=== PATIENT | male | born 1975 | race Caucasian/White ===

== ENCOUNTER 2022-12-22 09:40 | Outpatient (AMB) | payer MEDICARE, MEDICAID, SELFPAY ==
[2022-12-22 09:57] VITALS: BP 134/87; PULSE 82; RESP 14; O2SAT 95; BMI 22.1
--- NOTE | 2022-12-22 09:57 | MHC.OFFVIS ---
Intake Vital Signs 12/22/22 09:57 Height 6 ft Weight 163 lb BMI 22.1 BP 134/87 Blood Pressure Location Lt brachial Position Sitting Respiration 14 Pulse 82 Pulse Source Pulse Oximeter Pulse Oximetry (%) 95 Oxygen Delivery Method Room Air Intake Visit Reasons: pain s/p SIJ fusion Allergies gabapentin Adverse Reaction (Severe, Verified 12/22/22 09:59) Hallucinations trazodone Adverse Reaction (Severe, Verified 12/22/22 09:59) Nightmare Medication List - Last Reconciled 12/22/22 by Mey Denton LPN amlodipine-benazepril 5-10 mg 1 cap PO DAILY aspirin (Adult Aspirin Regimen) 81 mg PO DAILY diazepam 10 mg PO BID PRN insulin degludec (Tresiba FlexTouch U-100 insulin) 5 units subcut DAILY insulin lispro (Humalog KwikPen (U-100) Insulin) 1 sliding scale dose subcut USEASDIRECTD lisinopril 5 mg PO DAILY omeprazole 20 mg PO DAILY oxycodone 10 mg PO Q4H PRN simvastatin 10 mg PO BEDTIME HPI pain s/p SIJ fusion HPI Details 47-year-old female presenting today for a new patient evaluation of pain status post SIJ fusion. The patient was referred by Dr. Snell. The patient underwent two SIJ fusions last year. The patient reports increased pain postoperatively that is mostly localized to the bilateral sacroiliac joints. The pain extends into his buttocks but does not radiate down to his lower extremities. It is rated as 9/10 in intensity. The patient states that his pain was constant stabbing ranging at 7/10 in intensity before surgery. Few months after his surgery, he has throbbing pain and he had difficulty ambulating without his crutches, and his pain has kept worsening since. Movements and weather changes make it worse. He is unable to sleep normally or do his daily activities. The pain is relatively okay when he is resting/sleeping but any kind of awake activity makes it worse. He takes oxycodone 10 mg 4 times a day prescribed by Dr. Snell as well as diazepam 10 mg twice a day. Prior history is notable for lumbar spine surgery by Dr. Webster. He describes aching stabbing sensation in his lumbar spine prior to that surgery. Following the surgery that aching stabbing sensation is lumbar spine somewhat decline. At present he continues to have some pain in his lumbar spine, but denies significant debilitation from that pain. He had a MRI prior to his last surgery about a year ago at [facility], likely for the sacroiliac joint. He denies any weakness, numbness, or paresthesia in his lower extremities. He has a longstanding history of diabetes mellitus and was diagnosed at the age of 19. There is no evidence of diabetic neuropathy per his psychologist chief. [facility] Medical History (Updated 12/22/22 @ 10:42 by Bradford Barber) Anxiety Disorder of sacrum GERD (gastroesophageal reflux disease) HTN (hypertension) Hyperlipidemia Lumbar spondylosis Type 1 diabetes mellitus Review of Systems Const All systems reviewed & are unremarkable except as noted in HPI and below Physical Exam Vital Signs: Last Vital Signs Pulse 82 12/22/22 09:57 Resp 14 12/22/22 09:57 BP 134/87 12/22/22 09:57 Pulse Ox 95 12/22/22 09:57 Oxygen Delivery Method Room Air 12/22/22 09:57 BMI result Body Mass Index 22.1 General: Appears afebrile. Alert and oriented. Mood and affect appropriate. Follows and participates in conversation appropriately. Respiratory effort is unlabored. Able to transition from sit to stand unassisted. Ambulates with bilaterally normal heel strike and toe off. There are well-healed incisions in the lumbar spine from prior lumbar spine fusion surgery. There is a well-healed scar in the right iliac crest for bone harvest for lumbar spine bone graft. No significant tenderness in the lumbar spine despite significant axial muscle spasm. Most of his tenderness overlies bilateral sacroiliac joints. No evidence of weakness in the lower extremities. Results Reviewed Results Reviewed: No imaging is available for review. Assessment & Plan Assessment & Plan (1) Lumbar post-laminectomy syndrome: Code(s): M96.1 - Postlaminectomy syndrome, not elsewhere classified (2) Status post fusion of sacroiliac joint: Code(s): Z98.1 - Arthrodesis status Plan Discussed targeted medial cluneal PNS for sacrococcygeal pain vs spinal cord stimulation for back and leg pain. It appears the vast majority of his pain is secondary to a failed SI joint fusion, but difficult to rule out post-laminectomy syndrome as a possible cause. Will schedule him for diagnostic bilateral medial cluneal nerve blocks first. Discussed the risks and benefits of the procedure with the patient in detail. All questions were answered. The patient is on board with the plan. Depending on response to the cluneal nerve blocks, we can proceed with either medial cluneal PNS versus trial of spinal cord stimulation with a Nevro device. Ordered a CT scan of the lumbar spine and SI joints for further evaluation of the postsurgical anatomy to rule out hardware failure as well as for potential surgical planning in the future. Will place a referral for psychology clearance. The patient will receive a call from [facility] for the psychological assessment. Justification for interventional therapy: ? Patient with average pain > 6/10 ? Patient has exhausted conservative therapy including nerve blocks, SIJ fusion, lumbar fusion, oral narcotic medication Scribed for Dr. Rico by Bradford Barber, certified medical coder, on 12/22/2022. I, Dr. Rico, have personally reviewed and agree with the information entered by the scribe. Orders: Orders CT lumbar spine wo IV con Today M96.1 - Postlaminectomy syndrome, not elsewhere classified, Z98.1 - Arthrodesis status Coding Level of Care Code New Pt Level 4 (51081) Diagnoses Lumbar post-laminectomy syndrome M96.1 Status post fusion of sacroiliac joint Z98.1
== END 2022-12-22 10:37 | disposition home or self-care (01) ==
PROVIDERS: Visit Provider Internal Medicine
DX: M96.1 Postlaminectomy syndrome, not elsewhere classified (principal); Z98.1 Arthrodesis status
CPT/HCPCS: 99204

== ENCOUNTER → 2022-12-22 09:40 | Outpatient (BNVA) | payer MEDICARE, MEDICAID, SELFPAY | PROVIDERS: Visit Provider Internal Medicine | DX: M96.1 Postlaminectomy syndrome, not elsewhere classified (principal); M47.816 Spondylosis without myelopathy or radiculopathy, lumbar region; E10.9 Type 1 diabetes mellitus without complications; Z98.1 Arthrodesis status; Z79.82 Long term (current) use of aspirin; Z79.4 Long term (current) use of insulin; Z79.891 Long term (current) use of opiate analgesic | CPT/HCPCS: 99202 ==

== ENCOUNTER 2023-01-26 10:59 | Outpatient (REF) | payer MEDICARE, MEDICAID, SELFPAY | END 2023-01-26 11:00 | disposition home or self-care (01) | LOC: HO.CT 10:59 | PROVIDERS: PCP Internal Medicine; Visit Provider Internal Medicine | DX: Z13.89 Encounter for screening for other disorder (principal) ==

== ENCOUNTER 2023-01-28 06:14 | Outpatient (REF) | payer MEDICARE, MEDICAID, SELFPAY ==
--- NOTE | ~2023-01-28 | FL_ITS ---
EXAMINATION: XR FLUOROSCOPY WITH IMAGES CLINICAL INFORMATION: Other specified mononeuropathies. COMPARISON: None available. TECHNIQUE: Fluoroscopy Supervised By: Dr. Juan Miguel Rico. Fluoroscopy Time: 0.1 minute. Cumulative Dose: 2.02 mGy. DAP: 0.285 Gycm2. Images: 2. FINDINGS: Images demonstrate needle placement and contrast injection adjacent to the bilateral lower lumbar sacral spine. Disc surgery to the lower lumbar spine. Hardware in the left pelvis. FL/FL guidance in treatment room IMPRESSION: Fluoroscopy guidance for pain management procedure
== END 2023-01-28 06:15 | disposition home or self-care (01) ==
LOC: CF 06:14
PROVIDERS: Visit Provider Internal Medicine
DX: G58.8 Other specified mononeuropathies (principal); Z98.1 Arthrodesis status
CPT/HCPCS: 64450

== ENCOUNTER 2023-01-28 08:19 | Outpatient (AMB) | payer MEDICARE, MEDICAID, SELFPAY ==
[2023-01-28 08:27] VITALS: BP 130/78; PULSE 90; RESP 14; O2SAT 97
--- NOTE | 2023-01-28 08:27 | A.OFFVIS_ITS ---
Intake Vital Signs 01/28/23 08:27 01/28/23 09:22 BP 130/78 144/60 H Blood Pressure Location Rt brachial Rt brachial Position Sitting Sitting Respiration 14 14 Pulse 90 61 Pulse Source Pulse Oximeter Pulse Oximeter Pulse Oximetry (%) 97 98 Oxygen Delivery Method Room Air Room Air Intake Visit Reasons: robert Dx cluneal NB Allergies gabapentin Adverse Reaction (Severe, Verified 01/28/23 08:27) Hallucinations trazodone Adverse Reaction (Severe, Verified 01/28/23 08:27) Nightmare HPI robert Dx cluneal NB HPI Details Patient presents for scheduled procedure. Denies any recent cough, cold, infection, fever or other significant changes in medical history since last office visit. [facility] Medical History (Updated 01/23/23 @ 08:45 by Shantell Rai APRN, [place]) Hyperlipidemia GERD (gastroesophageal reflux disease) Type 1 diabetes mellitus Anxiety HTN (hypertension) Lumbar spondylosis Disorder of sacrum Physical Exam Vital Signs: Last Vital Signs Pulse 90 01/28/23 08:27 Resp 14 01/28/23 08:27 BP 130/78 01/28/23 08:27 Pulse Ox 97 01/28/23 08:27 Oxygen Delivery Method Room Air 01/28/23 08:27 Office Procedures Nerve Block Details: Bilateral Medial Cluneal Nerves, fluoroscopic guided nerve block After obtaining written consent, pre-procedure blood pressure and heart rate were stable and recorded in the nursing record. The patient was placed prone on the fluoroscopy table. The area overlying the peripheral nerves was widely prepped with chloraprep, allowed to dry and sterilely draped. Using fluoroscopy, the appropriate landmarks were identified. The skin overlying the target was anesthetized with 0.5% lidocaine. A 22 gauge 3.5 inch spinal needle was advanced under fluoroscopic guidance to the appropriate landmarks at three sites along the medial iliac border. Verification was done using lateral and AP views. Aspiration was negative for heme. 0.5 cc of ropivacaine 0.5% was injected around each targeted area. The needles were removed, skin cleansed and a sterile bandage was applied. The patient tolerated the procedure well and no complications were encountered. Following the procedure the patient's vital signs were stable. The patient was discharged home in good condition with post- procedural instructions. Time Out: Immediately prior to the procedure, the following was verbally confirmed that there is a signed consent form and that the correct patient, planned procedure, site and side are consistent with documentation and that necessary equipment and/or blood products are available prior to the start of the case. 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 Patient tolerated procedure well and was discharged home in stable condition with discharge instructions. All questions were answered. We will follow-up via telephone or in clinic to assess response to therapy. A follow-up appointment was made during today's visit. Orders: Orders FL guidance in treatment room Today G58.8 - Other specified mononeuropathies Coding Level of Care Code Procedure Only Diagnoses Cluneal neuropathy G58.8 Status post fusion of sacroiliac joint Z98.1
[2023-01-28 09:22] VITALS: BP 144/60; PULSE 61; RESP 14; O2SAT 98
== END 2023-01-28 09:21 | disposition home or self-care (01) ==
PROVIDERS: PCP Internal Medicine; Visit Provider Internal Medicine
DX: G58.8 Other specified mononeuropathies (principal); Z98.1 Arthrodesis status
CPT/HCPCS: 64450; 77002

== ENCOUNTER 2023-01-30 12:12 | Outpatient (AMB) | payer MEDICARE, MEDICAID, SELFPAY ==
--- NOTE | 2023-01-30 12:13 | MHC.OFFVIS ---
Intake Intake Visit Reasons: s/p robert Dx cluneal NB Allergies gabapentin Adverse Reaction (Severe, Verified 01/28/23 08:27) Hallucinations trazodone Adverse Reaction (Severe, Verified 01/28/23 08:27) Nightmare HPI s/p robert Dx cluneal NB HPI Details 47-year-old male who presents today to the office for a status post bilateral diagnostic cluneal NB. The patient has not completed his psychological evaluation with [employer] [facility]. Past procedure: 01/28/23: Bilateral Medial Cluneal Nerves, fluoroscopic guided nerve block: 60% relief for 6 hours. [facility] Medical History (Updated 01/23/23 @ 08:45 by Shantell Rai, LONG WALL MINING MACHINE HELPER, GAMMA OPERATOR) Hyperlipidemia GERD (gastroesophageal reflux disease) Type 1 diabetes mellitus Anxiety HTN (hypertension) Lumbar spondylosis Disorder of sacrum Review of Systems Const All systems reviewed & are unremarkable except as noted in HPI and below Physical Exam General: Appears afebrile. Alert and oriented. Mood and affect appropriate. Follows and participates in conversation appropriately. Respiratory effort is unlabored. Able to transition from sit to stand unassisted. Ambulates with bilaterally normal heel strike and toe off. Results Reviewed Results Reviewed: No imaging is available for review. 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 We will schedule trial once we receive psych clearance. Patient expressed understanding. Scribed for Dr. Rico by Bradford Barber, medical records auditor, on 01/30/2023. I, Dr. Rico, have personally reviewed and agree with the information entered by the scribe. Telehealth Telehealth Location of provider rendering services: practice address Location of patient: address on file Patient Identification confirmed using: Name, : Yes Telehealth method: voice only Patient verbally consented to treatment: Yes Patient verbally consented to billing insurance company: Yes Patient informed of any privacy concerns related to visit: Yes Minutes spent on Phone/Video with Pt.: 10 Coding Level of Care Code Tele Est Pt Level 3 (48285) Diagnoses Cluneal neuropathy G58.8 Status post fusion of sacroiliac joint Z98.1
== END 2023-01-30 12:13 | disposition home or self-care (01) ==
LOC: HO.PMC 12:12
PROVIDERS: PCP Internal Medicine; Visit Provider Internal Medicine
DX: G58.8 Other specified mononeuropathies (principal); Z98.1 Arthrodesis status
CPT/HCPCS: G2012

== ENCOUNTER → 2023-01-30 12:12 | Outpatient (BNVA) | payer MEDICARE, MEDICAID, SELFPAY | PROVIDERS: PCP Internal Medicine; Visit Provider Internal Medicine ==

== ENCOUNTER → 2023-02-19 09:43 | Outpatient (BNVA) | payer MEDICARE, MEDICAID, SELFPAY | PROVIDERS: PCP Internal Medicine; Visit Provider Internal Medicine ==

== ENCOUNTER → 2023-02-26 09:27 | Outpatient (BNVA) | payer MEDICARE, MEDICAID, SELFPAY | PROVIDERS: PCP Internal Medicine; Visit Provider Internal Medicine ==

== ENCOUNTER 2023-10-21 09:16 | Day surgery (SDC) | payer MEDICARE, MEDICAID, SELFPAY ==
--- NOTE | 2023-10-19 12:08 | P.CONAN_ITS ---
Documented by User: Annia Massey NP 10/19/23 12:08 HPI - Anesthesia Eval Consult details Narrative: 48yo M for Bilateral Medial Cluneal Nerve Stimulator Trial [facility] Active Problems Active Problems: All Active Problems Cluneal neuropathy (Acute) Status post fusion of sacroiliac joint (Acute) Lumbar post-laminectomy syndrome (Acute) Past Medical History Medical History Hyperlipidemia GERD (gastroesophageal reflux disease) Type 1 diabetes mellitus Anxiety HTN (hypertension) Lumbar spondylosis Disorder of sacrum Surgical History Surgical History (Updated 10/21/23 @ 09:55 by Jessica Radford RN) History of corneal transplant Hx of hand surgery Hx of tonsillectomy History of back surgery Social History Social History Patient Tobacco Use Status: Former Tobacco user Use of substances other than those prescribed or required for medical reasons: Yes Substance Use Type Other:: smoked and edibles Substance Use Frequency: Occasionally Are you DNR?: No Advance Directives: No Advance Directives Information Provided: Yes Meds Allergies Allergy/AdvReac Type Severity Reaction Status Date / Time gabapentin AdvReac Severe Hallucinati Verified 10/21/23 09:56 ons trazodone AdvReac Severe Nightmare Verified 10/21/23 09:56 Home Medications ?Medication ?Instructions ?Recorded ?Confirmed ?Last Taken ?Type amlodipine 5 mg-benazepril 10 mg 1 cap PO DAILY 12/22/22 10/21/23 10/21/23 05:00 History capsule aspirin 81 mg tablet,delayed 81 mg PO DAILY 12/22/22 10/21/23 10/13/23 History release (Adult Aspirin Regimen) diazepam 10 mg tablet 10 mg PO BID PRN Anxiety 12/22/22 10/21/23 Unknown History insulin degludec 100 unit/mL (3 5 unit subcut DAILY 12/22/22 10/21/23 10/21/23 06:30 History mL) subcutaneous pen (Tresiba FlexTouch U-100 insulin) insulin lispro 100 unit/mL 1 sliding scale dose subcut 12/22/22 10/21/23 Unknown History subcutaneous pen (Humalog KwikPen USEASDIRECTD (U-100) Insulin) lisinopril 5 mg tablet 5 mg PO DAILY 12/22/22 10/21/23 10/21/23 05:00 History omeprazole 20 mg capsule,delayed 20 mg PO DAILY 12/22/22 10/21/23 10/21/23 05:00 History release oxycodone 10 mg tablet 10 mg PO Q4H PRN Pain 12/22/22 10/21/23 Unknown History simvastatin 10 mg tablet 10 mg PO BEDTIME 12/22/22 10/21/23 Unknown History Assessment and Plan Assessment Anesthesia Assessment: Chart Reviewed Documented by User: Jayme Hinojosa MD 10/21/23 13:21 [facility] Past Medical History Medical History Hyperlipidemia GERD (gastroesophageal reflux disease) Type 1 diabetes mellitus Anxiety HTN (hypertension) Lumbar spondylosis Disorder of sacrum Family History Family history of problems with anesthesia: No Surgical History Surgical History (Updated 10/21/23 @ 09:55 by Jessica Radford RN) History of corneal transplant Hx of hand surgery Hx of tonsillectomy History of back surgery History of Problems with Anesthesia: No Social History Social History Patient Tobacco Use Status: Former Tobacco user Use of substances other than those prescribed or required for medical reasons: Yes Substance Use Type Other:: smoked and edibles Substance Use Frequency: Occasionally Are you DNR?: No Advance Directives: No Advance Directives Information Provided: Yes Meds Allergies Allergy/AdvReac Type Severity Reaction Status Date / Time gabapentin AdvReac Severe Hallucinati Verified 10/21/23 09:56 ons trazodone AdvReac Severe Nightmare Verified 10/21/23 09:56 Home Medications ?Medication ?Instructions ?Recorded ?Confirmed ?Last Taken ?Type amlodipine 5 mg-benazepril 10 mg 1 cap PO DAILY 12/22/22 10/21/23 10/21/23 05:00 History capsule aspirin 81 mg tablet,delayed 81 mg PO DAILY 12/22/22 10/21/23 10/13/23 History release (Adult Aspirin Regimen) diazepam 10 mg tablet 10 mg PO BID PRN Anxiety 12/22/22 10/21/23 Unknown History insulin degludec 100 unit/mL (3 5 unit subcut DAILY 12/22/22 10/21/23 10/21/23 06:30 History mL) subcutaneous pen (Tresiba FlexTouch U-100 insulin) insulin lispro 100 unit/mL 1 sliding scale dose subcut 12/22/22 10/21/23 Unknown History subcutaneous pen (Humalog KwikPen USEASDIRECTD (U-100) Insulin) lisinopril 5 mg tablet 5 mg PO DAILY 12/22/22 10/21/23 10/21/23 05:00 History omeprazole 20 mg capsule,delayed 20 mg PO DAILY 12/22/22 10/21/23 10/21/23 05:00 History release oxycodone 10 mg tablet 10 mg PO Q4H PRN Pain 12/22/22 10/21/23 Unknown History simvastatin 10 mg tablet 10 mg PO BEDTIME 12/22/22 10/21/23 Unknown History Exam Airway Mallampati Class: II TM Dist: >3cm Neck ROM: Full Denture: Upper Partial: Lower Assessment and Plan Assessment Anesthesia Assessment: Anesthesia Plan Discussed Final Anesthetic Review Family History of Problems with Anesthesia: No History of Problems with Anesthesia: No NPO: Yes ASA Class: III Final Preanesthetic Review: No Changes in Pt Med Stat, Meds/Allgs Chart Reviewed, Consent Obtained/Reviewed and Anes Risks/Benef Reviewed Patient Risk: Intermediate Procedure Risk: Low Anesthetic Plan Anesthetic Plan: MAC: Disposition: Standard PACU
--- NOTE | ~2023-10-21 | FL_ITS ---
EXAMINATION: XR FLUOROSCOPY WITH IMAGES CLINICAL INFORMATION: Medial cranial nerve stimulator trial. COMPARISON: None available. TECHNIQUE: Fluoroscopy Supervised By: Dr. Juan Miguel Rico. Fluoroscopy Time: 34 seconds. Cumulative Dose: 8.1734 mGy. DAP: 1.9890 Gycm2. Images: 2. FINDINGS: Intraoperative fluoroscopy and spot films were performed during a procedure in the OR. Fixation devices are seen overlying the sacrum. 2 stimulator leads are seen on each side of the sacrum. Please correlate with Dr. Juan Miguel Rico's report for complete details. FL/FL guidance in OR IMPRESSION: Intraoperative fluoroscopy and spot films were obtained. Please see Dr. Juan Miguel Rico's report for complete details.
[2023-10-21 09:46] VITALS: BMI 22.7
[2023-10-21 10:18] VITALS: BP 164/66; PULSE 45; RESP 15; TEMP 36.8; O2SAT 97
[2023-10-21 10:20] LABS: Glucose, Whole Blood 302 mg/dL (60-115)
[2023-10-21] MEDS: Lactated Ringers 1,000 ML 100 ML IVCONT (10:32)
[2023-10-21 11:28] LABS: MRSA Nasal PCR NEGATIVE (Negative); SA Nasal PCR POSITIVE (Negative)
[2023-10-21] MEDS: Insulin Lispro 100 UNIT/ML 3 ML VIAL SUBCUT (12:00)
[2023-10-21 13:09] LABS: Glucose, Whole Blood 240 mg/dL (60-115)
--- NOTE | 2023-10-21 13:47 | MHC.SHP ---
Pre-Procedural Eval Section A - 24 Hr Update-Section A only Date of Service: 10/21/23 The patient is an INPATIENT: No Changes since office visit: Yes Patient answered all questions The patient has been examined within 24 hours of the surgical procedure. The History & Physical has been completed within 30 days and I have reviewed it.: No Section B - Complete if H&P > 30 days Chief Complaint: Other specified mononeuropathies Relevant Family History (Specify if Yes): No Relevant Social History: Other (specify) Present Medications: see Short Stay Collaborative assessment Medical History: No relevant PMH History of Previous Operations: No relevant previous surgery Allergies: Allergies Allergy/AdvReac Type Severity Reaction Status Date / Time gabapentin AdvReac Severe Hallucinati Verified 10/21/23 09:56 ons trazodone AdvReac Severe Nightmare Verified 10/21/23 09:56 Review of Systems Sugical H&P ROS: Negative: Constitution, Cardiovascular and Respiratory Exam Surgical H&P Exam: Normal: HEENT, Normal: Heart and Normal: Lungs Plan Diagnosis/Plan: Unchanged I have reviewed the history and physical and performed a pertinent physical examination on my patient. No changes have occurred unless specified. Time Spent With Patient Time: Total time managing care of this patient today ____ minutes.
[2023-10-21 15:05] VITALS: BP 118/66; PULSE 54; RESP 16; TEMP 36.1; O2SAT 98
--- NOTE | 2023-10-21 15:11 | PM.OP ---
Brief Operative Note Date of Service: 10/21/23 Pre-op diagnosis: Medial cluneal neuropathy, sacroiliac joint pain Post-op diagnosis: same Procedure: Bilateral medial cluneal nerve stimulator trial lead placement Implants: Curonix PNS trial leads Surgeon: Juan Miguel Rico MD Anesthesia: MAC Was an Residential Sales Representative used for this Procedure?: No Estimated blood loss (mL): 2 Pathology: none sent Condition: stable Disposition: PACU
--- NOTE | 2023-10-21 15:12 | P.OP_ITS ---
Operative Note Operative Note Date of Service: 10/21/23 Narrative: Percutaneous trial of cluneal nerve stimulation of bilateral After obtaining written consent, pre-procedure blood pressure and heart rate were stable and recorded in the nursing record. Standard monitors were applied. A peripheral IV was started. Antibiotics, cefazolin 2 grams, were given prior to the start of the procedure. The patient was positioned in prone position and sedated by the music education director. The lumbar area was widely prepped with chloraprep and draped in sterile fashion. The skin at the insertion site was anesthetized with 0.5% lidocaine. A small stab was made with a scalpel to allow for easy insertion of the introducer on each side. The introducers were advanced subcutaneously along the length of the lateral margin of the posterior sacral rami in the distribution of the medial cluneal nerve on each side. The electrode arrays were passed through the introducers using a tenting approach at a shallow angle. Fluoroscopy, AP and lateral, was used to confirm appropriate lead position. Stimulation was performed and good coverage was obtained. The lead was secured using benzoin, steri-strips and tegaderms. The patient tolerated the procedure well. No complications were encountered. Following the procedure the patient's vital signs were stable. The patient was discharged home in good condition with post- procedural instructions. Time Out: Immediately prior to the procedure, the following was verbally confirmed that there is a signed consent form and that the correct patient, planned procedure, site and side are consistent with documentation and that necessary equipment and/or blood products are available prior to the start of the case. Complications: none EBL: <5 cc
[2023-10-21 15:20] VITALS: BP 127/88; PULSE 57; RESP 16; O2SAT 98
[2023-10-21 15:35] VITALS: BP 131/73; PULSE 56; RESP 16; TEMP 36.1; O2SAT 98
[2023-10-21] MEDS: oxyCODONE HCl Immed Release 5 MG TABLET 10 MG PO (15:37)
[2023-10-21 15:50] VITALS: BP 132/78; PULSE 54; RESP 16; TEMP 36.1; O2SAT 98
== END 2023-10-21 15:57 | disposition home or self-care (01) ==
PROVIDERS: Registered Nurse Emergency; PCP Internal Medicine; Visit Provider Internal Medicine
PROC: (CPT 64555; principal; 2023-10-21 11:50)
DX: G58.8 Other specified mononeuropathies (principal); E10.9 Type 1 diabetes mellitus without complications; I10 Essential (primary) hypertension; Z98.1 Arthrodesis status
CPT/HCPCS: 64555 ×2; 82947; 87640; 87641; C1897; J0690; J2250; J2704; J3010

== ENCOUNTER → 2023-10-21 09:16 | Outpatient (BNV) | payer MEDICARE, MEDICAID, SELFPAY | PROVIDERS: PCP Internal Medicine; Visit Provider Internal Medicine | DX: G58.8 Other specified mononeuropathies (principal) | CPT/HCPCS: 63650; 64555 ==

== ENCOUNTER 2023-10-28 09:50 | Outpatient (AMB) | payer MEDICARE, MEDICAID, SELFPAY ==
[2023-10-28 10:04] VITALS: BP 169/95; PULSE 59; RESP 14; O2SAT 98; BMI 20.7
--- NOTE | 2023-10-28 10:04 | MHC.OFFVIS ---
Vital Signs 10/28/23 10:04 Height 6 ft Weight 153 lb BMI 20.7 BP 169/95 H Blood Pressure Location Lt brachial Position Sitting Respiration 14 Pulse 59 Pulse Source Pulse Oximeter Pulse Oximetry (%) 98 Oxygen Delivery Method Room Air Intake Visit Reasons: S/p B/l Trial of Medial Cluneal Nerve PNS 10/21/23 Allergies gabapentin Adverse Reaction (Severe, Verified 10/28/23 10:08) Hallucinations trazodone Adverse Reaction (Severe, Verified 10/28/23 10:08) Nightmare Medication List - Last Reconciled 10/28/23 by Mey Denton LPN amlodipine-benazepril 5-10 mg 1 cap PO DAILY aspirin (Adult Aspirin Regimen) 81 mg PO DAILY diazepam 10 mg PO BID PRN insulin degludec (Tresiba FlexTouch U-100 insulin) 5 units subcut DAILY insulin lispro (Humalog KwikPen (U-100) Insulin) 1 sliding scale dose subcut USEASDIRECTD lisinopril 5 mg PO DAILY omeprazole 20 mg PO DAILY oxycodone 10 mg PO Q4H PRN simvastatin 10 mg PO BEDTIME HPI HPI S/p B/l Trial of Medial Cluneal Nerve PNS 10/21/23: Details: 48-year-old male who presents to the office for status post bilateral trial of medial cluneal nerve PNS 10/21/23 He reports about 60% pain relief following the procedure. Past procedure: 10/21/23: Bilateral diagnostic cluneal nerve PNS: >60% relie 01/28/23: Bilateral Medial Cluneal Nerves, fluoroscopic guided nerve block: 60% relief for 6 hours. [facility] Medical History Hyperlipidemia GERD (gastroesophageal reflux disease) Type 1 diabetes mellitus Anxiety HTN (hypertension) Lumbar spondylosis Disorder of sacrum Surgical History (Updated 10/21/23 @ 09:55 by Jessica Radford RN) History of corneal transplant Hx of hand surgery Hx of tonsillectomy History of back surgery Social History Patient Tobacco Use Status: Former Tobacco user Review of Systems Const All systems reviewed & are unremarkable except as noted in HPI and below Physical Exam Vital Signs: Last Vital Signs Pulse 59 10/28/23 10:04 Resp 14 10/28/23 10:04 BP 169/95 H 10/28/23 10:04 Pulse Ox 98 10/28/23 10:04 Oxygen Delivery Method Room Air 10/28/23 10:04 BMI result Body Mass Index 20.7 General: Appears afebrile. Alert and oriented. Mood and affect appropriate. Follows and participates in conversation appropriately. Respiratory effort is unlabored. Able to transition from sit to stand unassisted. Draininage noted at lead insertion site on the right. 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 For his superficial skin infection on the right side, the right lead insertion site I will prescribe Cephalexin 750 mg 3 times a day for 7 days. I changed the dressing in the office today and dressed it with bacitracin. I also provided him with supplies for bacitracin and Tegaderm to do it at home, which he can do with the help of his neighbor, who is a nurse. He will contact me if it fails to respond to the antibiotic. I counseled him regarding watching for swelling, redness and or drainage at the site. Patient expressed understanding. We will schedule for an implant of bilateral medial cluneal nerve stimulator. Discussed the risks and benefits of the procedure with the patient in detail. All questions were answered. The patient is on board with the plan. Justification for interventional therapy: ? Patient with average pain > 6/10 ? Patient has exhausted conservative therapy ? Patient unable to tolerate physical therapy due to pain Scribed for Dr. Rico by Candace Hernandez, medical authorization specialist, on 10/28/2023. I, Dr. Rico, have personally reviewed and agree with the information entered by the scribe. Medications: New cephalexin 750 mg PO TID 21 caps 0RF Coding Level of Care Code Est Pt Level 3 (32757) Diagnoses Cluneal neuropathy G58.8 Status post fusion of sacroiliac joint Z98.1
== END 2023-10-28 10:21 | disposition home or self-care (01) ==
PROVIDERS: PCP Internal Medicine; Visit Provider Internal Medicine
DX: G58.8 Other specified mononeuropathies (principal); Z98.1 Arthrodesis status
CPT/HCPCS: 99024

== ENCOUNTER → 2023-10-28 09:50 | Outpatient (BNVA) | payer MEDICARE, MEDICAID, SELFPAY | PROVIDERS: PCP Internal Medicine; Visit Provider Internal Medicine | DX: G58.8 Other specified mononeuropathies (principal); Z98.1 Arthrodesis status | CPT/HCPCS: 99212 ==

== ENCOUNTER 2023-11-09 11:35 | Outpatient (AMB) | payer MEDICARE, MEDICAID, SELFPAY ==
[2023-11-09 11:36] VITALS: BP 138/72; PULSE 90; BMI 22.8
--- NOTE | 2023-11-09 11:36 | A.OFFVIS_ITS ---
Vital Signs 11/09/23 11:36 Height 6 ft Weight 168 lb BMI 22.8 BP 138/72 Blood Pressure Location Rt brachial Position Sitting Pulse 90 Pulse Source Pulse Oximeter Comment Vitals are stated by patient who took them at home. Intake Visit Reasons: QUESTIONS ABOUT DRESSING CHANGES It Risk Advisor Required: No Allergies gabapentin Adverse Reaction (Severe, Verified 10/28/23 10:08) Hallucinations trazodone Adverse Reaction (Severe, Verified 10/28/23 10:08) Nightmare HPI HPI QUESTIONS ABOUT DRESSING CHANGES: Details: 48-year-old male who presents today to the office for a question about changing dressing. He reports back pain. He rates his back pain at 9-10/10 in intensity. He describes his pain as a stabbing sensation in the back. He is physically not active and does not walk or climb stairs. He has been changing his dressing two to three times a week. He states that his wound is still slightly draining, though it is not as painful and the drainage is minimal. He completed his antibiotics course two days ago.? Past procedure: 10/21/23: Bilateral diagnostic cluneal nerve PNS 01/28/23: Bilateral Medial Cluneal Nerves, fluoroscopic guided nerve block: 60% relief for 6 hours. [facility] Medical History Hyperlipidemia GERD (gastroesophageal reflux disease) Type 1 diabetes mellitus Anxiety HTN (hypertension) Lumbar spondylosis Disorder of sacrum Surgical History (Updated 10/21/23 @ 09:55 by Jessica Radford RN) History of corneal transplant Hx of hand surgery Hx of tonsillectomy History of back surgery Social History Patient Tobacco Use Status: Former Tobacco user Review of Systems Const All systems reviewed & are unremarkable except as noted in HPI and below Physical Exam Vital Signs: Last Vital Signs Pulse 90 11/09/23 11:36 BP 138/72 11/09/23 11:36 BMI result Body Mass Index 22.8 Telehealth Telehealth Telehealth Platform: Telephone Location of provider rendering services: practice address Location of patient: address on file Patient Identification confirmed using: Name, : Yes Telehealth method: voice only Patient verbally consented to treatment: Yes Patient verbally consented to billing insurance company: Yes Patient informed of any privacy concerns related to visit: Yes Minutes spent on Phone/Video with Pt.: 8 Results Reviewed Results Reviewed: No imaging is available for review. 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 We will follow up in one week to reassess for complete resolution and assess for further oral antibiotics. We will proceed to implant once the infection is completely settled. The patient will follow up on 11/16/2023 at 10:[address] Rico by Bradford Barber, director global medical affairs, on 11/09/2023. I, Dr. Rico, have personally reviewed and agree with the information entered by the scribe. Medications: New glsljwcc-zfklkhrthSp-zdghujspF 3.5-500-10,000 aj-kkyi-dxfk 1 appl topical BID 28 grams 0RF Coding Level of Care Code Tele Est Pt Level 3 (92265) Diagnoses Cluneal neuropathy G58.8 Status post fusion of sacroiliac joint Z98.1
== END 2023-11-09 11:43 | disposition home or self-care (01) ==
LOC: HO.PMC 11:35
PROVIDERS: PCP Internal Medicine; Visit Provider Internal Medicine
DX: G58.8 Other specified mononeuropathies (principal); Z98.1 Arthrodesis status
CPT/HCPCS: 99441

== ENCOUNTER → 2023-11-09 11:35 | Outpatient (BNVA) | payer MEDICARE, MEDICAID, SELFPAY | PROVIDERS: PCP Internal Medicine; Visit Provider Internal Medicine ==

== ENCOUNTER 2023-11-16 10:17 | Outpatient (AMB) | payer MEDICARE, MEDICAID, SELFPAY ==
--- NOTE | 2023-11-16 10:19 | A.OFFVIS_ITS ---
Vital Signs 11/16/23 10:20 Height 6 ft Weight 168 lb BMI 22.8 BP 140/62 H Blood Pressure Location Lt brachial Position Sitting Respiration 14 Pulse 59 Pulse Source Pulse Oximeter Pulse Oximetry (%) 97 Oxygen Delivery Method Room Air Intake Visit Reasons: 1 week follow up/ MRSA swab Allergies gabapentin Adverse Reaction (Severe, Verified 11/16/23 10:22) Hallucinations trazodone Adverse Reaction (Severe, Verified 11/16/23 10:22) Nightmare Medication List - Last Reconciled 11/16/23 by Mey Denton LPN amlodipine-benazepril 5-10 mg 1 cap PO DAILY aspirin (Adult Aspirin Regimen) 81 mg PO DAILY cephalexin 750 mg PO TID diazepam 10 mg PO BID PRN insulin degludec (Tresiba FlexTouch U-100 insulin) 5 units subcut DAILY insulin lispro (Humalog KwikPen (U-100) Insulin) 1 sliding scale dose subcut USEASDIRECTD lisinopril 5 mg PO DAILY qdgnquek-noxxjbhogOf-erphbjsaS 3.5-500-10,000 fu-ugkn-nknl 1 appl topical BID omeprazole 20 mg PO DAILY oxycodone 10 mg PO Q4H PRN simvastatin 10 mg PO BEDTIME HPI HPI 1 week follow up/ MRSA swab: Details: 48-year-old male who presents today to the office for a wound check. He reports mild pain at the wound site. He had a MRSA testing done which was negative. Past procedure: 10/21/23: Bilateral diagnostic cluneal nerve PNS: More than 60% relief for the duration of the trial 01/28/23: Bilateral Medial Cluneal Nerves, fluoroscopic guided nerve block: 60% relief for 6 hours. [facility] Medical History Hyperlipidemia GERD (gastroesophageal reflux disease) Type 1 diabetes mellitus Anxiety HTN (hypertension) Lumbar spondylosis Disorder of sacrum Surgical History (Updated 10/21/23 @ 09:55 by Jessica Radford RN) History of corneal transplant Hx of hand surgery Hx of tonsillectomy History of back surgery Social History Patient Tobacco Use Status: Former Tobacco user Review of Systems Const All systems reviewed & are unremarkable except as noted in HPI and below Physical Exam Vital Signs: Last Vital Signs Pulse 59 11/16/23 10:20 Resp 14 11/16/23 10:20 BP 140/62 H 11/16/23 10:20 Pulse Ox 97 11/16/23 10:20 Oxygen Delivery Method Room Air 11/16/23 10:20 BMI result Body Mass Index 22.8 General: Appears afebrile. Alert and oriented. Mood and affect appropriate. Follows and participates in conversation appropriately. Respiratory effort is unlabored. Able to transition from sit to stand unassisted. Ambulates with bilaterally normal heel strike and toe off. The needle entry site has closed off. There is no drainage. There is mild tenderness at the needle entry sites bilaterally likely from localized strain. No evidence of active infection. Results Reviewed Results Reviewed: No imaging is available for review. 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 He is cleared to proceed with scheduling the implant anytime after November to allow for adequate localized soft tissue healing prior to implant placement. Scribed for Dr. Rico by Bradford Barber, medical office secretary, on 11/16/2023. I, Dr. Rico, have personally reviewed and agree with the information entered by the scribe. Coding Level of Care Code Est Pt Level 3 (09971) Diagnoses Cluneal neuropathy G58.8 Status post fusion of sacroiliac joint Z98.1
[2023-11-16 10:20] VITALS: BP 140/62; PULSE 59; RESP 14; O2SAT 97; BMI 22.8
== END 2023-11-16 10:32 | disposition home or self-care (01) ==
LOC: HO.PMC 10:17
PROVIDERS: PCP Internal Medicine; Visit Provider Internal Medicine
DX: G58.8 Other specified mononeuropathies (principal); Z98.1 Arthrodesis status
CPT/HCPCS: 99213

== ENCOUNTER → 2023-11-16 10:17 | Outpatient (BNVA) | payer MEDICARE, MEDICAID, SELFPAY | PROVIDERS: PCP Internal Medicine; Visit Provider Internal Medicine | DX: G58.8 Other specified mononeuropathies (principal); Z98.1 Arthrodesis status | CPT/HCPCS: 99212 ==

== ENCOUNTER 2024-04-27 10:09 | Day surgery (SDC) | payer MEDICARE, MEDICAID, SELFPAY ==
--- NOTE | 2024-04-25 14:33 | HO.ANESPROP2 ---
HPI - Anesthesia Eval Consult details Narrative: 48yo M for Bilateral Medial Cluneal Peripheral Nerve Stimulator Implant s/p trial 10/2023 with MAC hx corneal transplant PMFSH Active Problems Active Problems: All Active Problems Cluneal neuropathy (Acute) Status post fusion of sacroiliac joint (Acute) Lumbar post-laminectomy syndrome (Acute) Past Medical History Medical History Hyperlipidemia GERD (gastroesophageal reflux disease) Type 1 diabetes mellitus Anxiety HTN (hypertension) Lumbar spondylosis Disorder of sacrum Family History Family history of problems with anesthesia: No Surgical History Surgical History (Updated 10/21/23 @ 09:55 by Jessica Radford RN) History of corneal transplant Hx of hand surgery Hx of tonsillectomy History of back surgery History of Problems with Anesthesia: No Social History Social History Patient Tobacco Use Status: Former Tobacco user Meds Allergies Allergy/AdvReac Type Severity Reaction Status Date / Time gabapentin AdvReac Severe Hallucinati Verified 11/16/23 10:22 ons trazodone AdvReac Severe Nightmare Verified 11/16/23 10:22 Home Medications ?Medication ?Instructions ?Recorded ?Confirmed ?Last Taken ?Type amlodipine 5 mg-benazepril 10 mg 1 cap PO DAILY 12/22/22 11/16/23 10/21/23 05:00 History capsule aspirin 81 mg tablet,delayed 81 mg PO DAILY 12/22/22 11/16/23 10/13/23 History release (Adult Aspirin Regimen) diazepam 10 mg tablet 10 mg PO BID PRN Anxiety 12/22/22 11/16/23 Unknown History insulin degludec 100 unit/mL (3 5 unit subcut DAILY 12/22/22 11/16/23 10/21/23 06:30 History mL) subcutaneous pen (Tresiba FlexTouch U-100 insulin) insulin lispro 100 unit/mL 1 sliding scale dose subcut 12/22/22 11/16/23 Unknown History subcutaneous pen (Humalog KwikPen USEASDIRECTD (U-100) Insulin) lisinopril 5 mg tablet 5 mg PO DAILY 12/22/22 11/16/23 10/21/23 05:00 History omeprazole 20 mg capsule,delayed 20 mg PO DAILY 12/22/22 11/16/23 10/21/23 05:00 History release oxycodone 10 mg tablet 10 mg PO Q4H PRN Pain 12/22/22 11/16/23 Unknown History simvastatin 10 mg tablet 10 mg PO BEDTIME 12/22/22 11/16/23 Unknown History Assessment and Plan Assessment Anesthesia Assessment: Chart Reviewed Final Anesthetic Review Family History of Problems with Anesthesia: No History of Problems with Anesthesia: No
[2024-04-27 11:20] VITALS: BMI 23.1
[2024-04-27 11:30] VITALS: BP 128/91; PULSE 48; RESP 15; TEMP 36.6; O2SAT 97
[2024-04-27] MEDS: Lactated Ringers 1,000 ML 100 ML IVCONT (11:38)
[2024-04-27 11:48] LABS: Glucose, Whole Blood 89 mg/dL (60-115)
--- NOTE | 2024-04-27 12:06 | MHC.SHP ---
Pre-Procedural Eval Section A - 24 Hr Update-Section A only Date of Service: 04/27/24 The patient is an INPATIENT: No Changes since office visit: Yes Patient answered all questions The patient has been examined within 24 hours of the surgical procedure. The History & Physical has been completed within 30 days and I have reviewed it.: No Section B - Complete if H&P > 30 days Chief Complaint: Other specified mononeuropathies Relevant Family History (Specify if Yes): No Relevant Social History: None Present Medications: see Short Stay Collaborative assessment Medical History: No relevant PMH History of Previous Operations: No relevant previous surgery Allergies: Allergies Allergy/AdvReac Type Severity Reaction Status Date / Time gabapentin AdvReac Severe Hallucinati Verified 04/27/24 11:19 ons trazodone AdvReac Severe Nightmare Verified 04/27/24 11:19 Review of Systems Sugical H&P ROS: Negative: Constitution, Cardiovascular and Respiratory Exam Surgical H&P Exam: Normal: HEENT, Normal: Heart and Normal: Lungs Plan Diagnosis/Plan: Unchanged I have reviewed the history and physical and performed a pertinent physical examination on my patient. No changes have occurred unless specified. Time Spent With Patient Time: Total time managing care of this patient today ____ minutes.
--- NOTE | 2024-04-27 12:06 | PM.OP ---
Brief Operative Note Date of Service: 04/27/24 Pre-op diagnosis: Middle cluneal neuropathy, sacroiliac joint dysfunction Post-op diagnosis: same Procedure: Bilateral middle cluneal nerve stimulator implant Implants: Curonix PNS system Surgeon: Juan Miguel Rico MD Anesthesia: MAC Was an Material Damage Adjuster used for this Procedure?: No Estimated blood loss (mL): 10 Pathology: none sent Condition: stable Disposition: PACU
--- NOTE | 2024-04-27 12:06 | W.PM.OPN ---
Operative Note Operative Note Date of Service: 04/27/24 Narrative: Pre-procedure diagnosis: Middle cluneal neuropathy, bilateral, sacroiliac joint dysfunction Postprocedure diagnosis: Same Procedure: Middle cluneal nerves stimulator implants (Curonix), bilateral, fluoroscopy guided After obtaining written consent, pre-procedure blood pressure and heart rate were stable and recorded in the nursing record. A peripheral IV was started. Antibiotics, cefazolin 2 g, were given prior to the start of the procedure. The patient was positioned in prone position and sedated by the billiard table mechanic. The lumbosacral area was widely prepped with chloraprep and draped in sterile fashion. Using fluoroscopy, the needle entry location was estimated on each side of the lumbar area. The skin at the insertion site was anesthetized with a mixture of 0.5% lidocaine and 0.25% ropivacaine.?A 14 gauge coude needle was used as an introducer.?The skin entry site was incised with a stab incision using a 15 blade and the introducer was advanced subcutaneously along the length of the lumbar paraspinal muscles until contact was established with the sacrum on both sides.?The introducer was then rotated and walked off the edge of the sacrum overlying the medial cluneal nerves. The electrode array was passed through the introducer using a tenting approach at a shallow angle. Fluoroscopy was used to confirm appropriate lead position. The rigid stylet was removed and the copper stylet was inserted. Stimulation was performed and good coverage was obtained. A pocket was then created in the midline in the thoracic spine area approximately 1 cm from the level of the skin. The skin incision was made with a 15 blade followed by a combination of electrocautery and blunt dissection. The leads were tunneled in a parallel fashion to the pocket site. A single knot was then placed on each of the leads to secure the copper stylet in place. The excess lead beyond the knot was coiled and tied with 0 silk ties. The coiled portion of the lead was then placed in the pocket. The pocket was then irrigated with vancomycin solution. The original Coude insertion sites were then bluntly dissected to place the leads deeper into the tissue. With the leads buried in soft tissue, the overlying skin was closed with 2-0 silk sutures. The pocket was closed in a layered fashion using 3-0 Vicryl for deep dermal layer. All 3 incision sites were dressed with Exofin, steri-strips and OpSites. The patient tolerated the procedure well. No complications were encountered. Following the procedure the patient's vital signs were stable. The patient was discharged home in good condition with post-procedural instructions. Time Out: Immediately prior to the procedure, the following was verbally confirmed that there is a signed consent form and that the correct patient, planned procedure, site and side are consistent with documentation and that necessary equipment and/or blood products are available prior to the start of the case. Complications: none EBL: 10 cc
[2024-04-27 12:20] LABS: Glucose, Whole Blood 79 mg/dL (60-115)
--- NOTE | 2024-04-27 12:23 | HO.ANESPROP2 ---
[facility] Active Problems Active Problems: All Active Problems Cluneal neuropathy (Acute) Status post fusion of sacroiliac joint (Acute) Lumbar post-laminectomy syndrome (Acute) Past Medical History Medical History Hyperlipidemia GERD (gastroesophageal reflux disease) Type 1 diabetes mellitus Anxiety HTN (hypertension) Lumbar spondylosis Disorder of sacrum Family History Family history of problems with anesthesia: No Surgical History Surgical History History of surgery History of corneal transplant Hx of hand surgery Hx of tonsillectomy History of back surgery History of Problems with Anesthesia: No Social History Social History Patient Tobacco Use Status: Former Tobacco user Use of substances other than those prescribed or required for medical reasons: Yes Substance Use Type Other:: edibles occasionally Substance Use Frequency: Occasionally Are you DNR?: No Advance Directives: No Advance Directives Information Provided: Yes Recently lost weight without trying: No Meds Allergies Allergy/AdvReac Type Severity Reaction Status Date / Time gabapentin AdvReac Severe Hallucinati Verified 04/27/24 11:19 ons trazodone AdvReac Severe Nightmare Verified 04/27/24 11:19 Active Medications: Current Medications Lactated Ringer's (Lr) 1,000 mls @ 100 mls/hr IVCONT .Q10H MELISSA Last Admin: 04/27/24 11:38 Dose: 100 mls/hr Home Medications ?Medication ?Instructions ?Recorded ?Confirmed ?Last Taken ?Type amlodipine 5 mg-benazepril 10 mg 1 cap PO DAILY 12/22/22 04/27/24 10/21/23 05:00 History capsule aspirin 81 mg tablet,delayed 81 mg PO DAILY 12/22/22 04/27/24 04/20/24 History release (Adult Aspirin Regimen) diazepam 10 mg tablet 10 mg PO BID PRN Anxiety 12/22/22 04/27/24 Unknown History insulin degludec 100 unit/mL (3 5 unit subcut DAILY 12/22/22 04/27/24 10/21/23 06:30 History mL) subcutaneous pen (Tresiba FlexTouch U-100 insulin) insulin lispro 100 unit/mL 1 sliding scale dose subcut 12/22/22 04/27/24 Unknown History subcutaneous pen (Humalog KwikPen USEASDIRECTD (U-100) Insulin) lisinopril 5 mg tablet 5 mg PO DAILY 12/22/22 04/27/24 10/21/23 05:00 History omeprazole 20 mg capsule,delayed 20 mg PO DAILY 12/22/22 04/27/24 10/21/23 05:00 History release oxycodone 10 mg tablet 10 mg PO Q4H PRN Pain 12/22/22 04/27/24 04/27/24 05:00 History simvastatin 10 mg tablet 10 mg PO BEDTIME 12/22/22 04/27/24 Unknown History Exam Height,Weight and Vital Signs: Height 6 ft Weight 77.111 kg Last Vital Signs Temp 97.9 F 04/27/24 11:30 Pulse 48 L 04/27/24 11:30 Resp 15 04/27/24 11:30 BP 128/91 H 04/27/24 11:30 Pulse Ox 97 04/27/24 11:30 O2 Del Method Room Air 04/27/24 11:30 Pertinent Lab Results Pertinent Lab Results: Laboratory Tests 04/27/24 04/27/24 11:41 12:16 POC Glucose 89 79 Airway Mallampati Class: II TM Dist: >3cm Neck ROM: Full Heart: RRR Lungs: CTA Assessment and Plan Assessment Anesthesia Assessment: Anesthesia Plan Discussed and Chart Reviewed Final Anesthetic Review Family History of Problems with Anesthesia: No History of Problems with Anesthesia: No NPO: Yes ASA Class: III Final Preanesthetic Review: Meds/Allgs Chart Reviewed, Consent Obtained/Reviewed and Anes Risks/Benef Reviewed Patient Risk: Low Procedure Risk: Low Anesthetic Plan Anesthetic Plan: MAC: Disposition: Standard PACU
[2024-04-27 13:26] LABS: MRSA Nasal PCR NEGATIVE (Negative); SA Nasal PCR POSITIVE (Negative)
[2024-04-27 15:01] VITALS: BP 134/68; PULSE 50; RESP 16; TEMP 36.4; O2SAT 98
--- NOTE | 2024-04-27 15:09 | HO.POSTANES ---
Post Anesthesia Evaluation Post Anesthesia Evaluation Date of Service: 04/27/24 Vital Signs: Vital Signs Temp Pulse Resp BP Pulse Ox O2 Del Method 04/27/24 11:30 97.9 F 48 L 15 128/91 H 97 Room Air Anesthesia: Monitored Mental Status: Awake Pain Control: Satisfactory Nausea/Vomiting: None Hydration: Adequate Anesthesia-Related Issues: No Anes. Related Issues
[2024-04-27 15:20] VITALS: BP 134/83; PULSE 48; RESP 16; O2SAT 98
[2024-04-27] MEDS: oxyCODONE HCl Immed Release 5 MG TABLET 10 MG PO (15:25)
[2024-04-27 15:35] VITALS: BP 148/79; PULSE 51; RESP 16; O2SAT 98
[2024-04-27 15:51] VITALS: BP 156/81; PULSE 51; RESP 16; TEMP 36.4; O2SAT 98
== END 2024-04-27 16:19 | disposition home or self-care (01) ==
PROVIDERS: Registered Nurse Emergency; PCP Internal Medicine; Visit Provider Internal Medicine
PROC: (CPT 64590; principal; 2024-04-27 12:30)
DX: G58.8 Other specified mononeuropathies (principal); M53.3 Sacrococcygeal disorders, not elsewhere classified; M99.04 Segmental and somatic dysfunction of sacral region; E78.5 Hyperlipidemia, unspecified; E10.9 Type 1 diabetes mellitus without complications; I10 Essential (primary) hypertension; M47.816 Spondylosis without myelopathy or radiculopathy, lumbar region; Z79.4 Long term (current) use of insulin; Z79.82 Long term (current) use of aspirin; Z79.899 Other long term (current) drug therapy; Z88.8 Allergy status to other drugs, medicaments and biological substances; Z98.1 Arthrodesis status; Z98.890 Other specified postprocedural states
CPT/HCPCS: 64590; 64555 ×2; 82947; 87640; 87641; C1816; J0690; J1596; J2003; J2250; J2704; J3010; J3370

== ENCOUNTER → 2024-04-27 10:09 | Outpatient (BNV) | payer MEDICARE, MEDICAID, SELFPAY | PROVIDERS: PCP Internal Medicine; Visit Provider Internal Medicine | DX: G57.82 Other specified mononeuropathies of left lower limb (principal); M46.1 Sacroiliitis, not elsewhere classified | CPT/HCPCS: 64555 ==

== ENCOUNTER 2024-05-06 11:20 | Outpatient (AMB) | payer MEDICARE, MEDICAID, SELFPAY ==
[2024-05-06 11:26] VITALS: BP 141/93; PULSE 90; RESP 15; O2SAT 96; BMI 23.2
--- NOTE | 2024-05-06 11:26 | MHC.OFFVIS ---
Vital Signs 05/06/24 11:26 Height 6 ft Weight 171 lb BMI 23.2 BP 141/93 H Blood Pressure Location Lt brachial Position Sitting Respiration 15 Pulse 90 Pulse Source Pulse Oximeter Pulse Oximetry (%) 96 Oxygen Delivery Method Room Air Intake Visit Reasons: S/p Curonix PNS Implant 04/27/24 Allergies gabapentin Adverse Reaction (Severe, Verified 05/13/24 10:54) Hallucinations trazodone Adverse Reaction (Severe, Verified 05/13/24 10:54) Nightmare Medication List - Last Reconciled 05/06/24 by Mey Denton LPN amlodipine-benazepril 5-10 mg 1 cap PO DAILY aspirin (Adult Aspirin Regimen) 81 mg PO DAILY diazepam 10 mg PO BID PRN insulin degludec (Tresiba FlexTouch U-100 insulin) 5 units subcut DAILY insulin lispro (Humalog KwikPen (U-100) Insulin) 1 sliding scale dose subcut USEASDIRECTD lisinopril 5 mg PO DAILY unwxkdpu-krdbpvtazVb-gyldqbcvO 3.5-500-10,000 oq-mvpo-lxtn 1 appl topical BID omeprazole 20 mg PO DAILY oxycodone 10 mg PO Q4H PRN simvastatin 10 mg PO BEDTIME HPI HPI S/p Curonix PNS Implant 04/27/24: Details: 48-year-old male who presents today to the office for a status post Curonix PNS implant. The patient reports mild relief following the procedure. He developed some allergic reaction to dressing tape around the site. He had the same reaction in the past and took Keflex, which worked well. He is currently staying at his mother's house. Past procedures: 04/27/24: Middle cluneal nerves stimulator implants (Curonix), bilateral, fluoroscopy guided: mild relief. 10/21/23: Bilateral diagnostic cluneal nerve PNS: More than 60% relief for the duration of the trial 01/28/23: Bilateral Medial Cluneal Nerves, fluoroscopic guided nerve block: 60% relief for 6 hours. [facility] Medical History Hyperlipidemia GERD (gastroesophageal reflux disease) Type 1 diabetes mellitus Anxiety HTN (hypertension) Lumbar spondylosis Disorder of sacrum Surgical History History of surgery History of corneal transplant Hx of hand surgery Hx of tonsillectomy History of back surgery Social History Comment: pt states pain is tolerable at that level and feels ready to go Patient Tobacco Use Status: Former Tobacco user Review of Systems Const All systems reviewed & are unremarkable except as noted in HPI and below Physical Exam Vital Signs: Last Vital Signs Pulse 90 05/06/24 11:26 Resp 15 05/06/24 11:26 BP 141/93 H 05/06/24 11:26 Pulse Ox 96 05/06/24 11:26 Oxygen Delivery Method Room Air 05/06/24 11:26 BMI result Body Mass Index 23.2 General: Appears afebrile. Alert and oriented. Mood and affect appropriate. Follows and participates in conversation appropriately. Respiratory effort is unlabored. Able to transition from sit to stand unassisted. Ambulates with bilaterally normal heel strike and toe off. Results Reviewed Results Reviewed: No imaging is available for review. 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 He developed some allergic reaction to dressing so I prescribed cephalexin 750 mg for management. I also recommended using hypoallergenic bandages for dressing at home. Scribed for Dr. Rico by Bradford Barber, center medical and lab director, on 05/06/2024. I, Dr. Rico, have personally reviewed and agree with the information entered by the scribe. Medications: New cephalexin 500 mg PO QID 30 caps 0RF Coding Level of Care Code Est Pt Level 3 (08306) Diagnoses Cluneal neuropathy G58.8 Status post fusion of sacroiliac joint Z98.1
== END 2024-05-06 11:48 | disposition home or self-care (01) ==
PROVIDERS: PCP Internal Medicine; Visit Provider Internal Medicine
DX: G58.8 Other specified mononeuropathies (principal); Z98.1 Arthrodesis status
CPT/HCPCS: 99024

== ENCOUNTER → 2024-05-06 11:20 | Outpatient (BNVA) | payer MEDICARE, MEDICAID, SELFPAY | PROVIDERS: PCP Internal Medicine; Visit Provider Internal Medicine | DX: G58.8 Other specified mononeuropathies (principal); Z98.1 Arthrodesis status | CPT/HCPCS: 99212 ==

== ENCOUNTER 2024-05-13 10:31 | Outpatient (AMB) | payer MEDICARE, MEDICAID, SELFPAY ==
--- NOTE | 2024-05-13 10:52 | MHC.OFFVIS ---
Vital Signs 05/13/24 10:53 Height 6 ft Weight 171 lb BMI 23.2 BP 130/77 Blood Pressure Location Lt brachial Position Sitting Respiration 16 Pulse 75 Pulse Source Pulse Oximeter Pulse Oximetry (%) 97 Oxygen Delivery Method Room Air Intake Visit Reasons: S/p Curonix PNS Implant (2nd Visit) 04/27/24 Allergies gabapentin Adverse Reaction (Severe, Verified 05/13/24 10:54) Hallucinations trazodone Adverse Reaction (Severe, Verified 05/13/24 10:54) Nightmare Medication List - Last Reconciled 05/13/24 by Mey Denton LPN amlodipine-benazepril 5-10 mg 1 cap PO DAILY aspirin (Adult Aspirin Regimen) 81 mg PO DAILY cephalexin 500 mg PO QID diazepam 10 mg PO BID PRN insulin degludec (Tresiba FlexTouch U-100 insulin) 5 units subcut DAILY insulin lispro (Humalog KwikPen (U-100) Insulin) 1 sliding scale dose subcut USEASDIRECTD lisinopril 5 mg PO DAILY unbisqfo-iunopgcuuLk-lewmrwndO 3.5-500-10,000 ki-fybx-gppz 1 appl topical BID omeprazole 20 mg PO DAILY oxycodone 10 mg PO Q4H PRN simvastatin 10 mg PO BEDTIME HPI HPI S/p Curonix PNS Implant (2nd Visit) 04/27/24: Details: Orlin is here for follow-up after implant of bilateral middle cluneal nerve stimulators. He reports good pain relief for his usual pain. He continues to have some issues with wound healing. He has been taking his cephalexin as prescribed. [facility] Medical History Hyperlipidemia GERD (gastroesophageal reflux disease) Type 1 diabetes mellitus Anxiety HTN (hypertension) Lumbar spondylosis Disorder of sacrum Surgical History History of surgery History of corneal transplant Hx of hand surgery Hx of tonsillectomy History of back surgery Social History Comment: pt states pain is tolerable at that level and feels ready to go Patient Tobacco Use Status: Former Tobacco user Physical Exam Vital Signs: Last Vital Signs Pulse 75 05/13/24 10:53 Resp 16 05/13/24 10:53 BP 130/77 05/13/24 10:53 Pulse Ox 97 05/13/24 10:53 Oxygen Delivery Method Room Air 05/13/24 10:53 BMI result Body Mass Index 23.2 Incisions appear to be healing. Sutures were removed today. Wounds were cleaned. Continues to have some redness and swelling around the incision sites. No evita discharge. 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 Provided a script for an additional 3 days of antibiotics. Follow-up next week for wound check. Wounds dressed with bacitracin and dry gauze. Supplies provided to the patient to do the same at home. Patient expressed understanding. Medications: New cephalexin 500 mg PO QID 12 caps 0RF Coding Level of Care Code Est Pt Level 3 (78467) Diagnoses Cluneal neuropathy G58.8 Status post fusion of sacroiliac joint Z98.1
[2024-05-13 10:53] VITALS: BP 130/77; PULSE 75; RESP 16; O2SAT 97; BMI 23.2
== END 2024-05-13 11:15 | disposition home or self-care (01) ==
PROVIDERS: PCP Internal Medicine; Visit Provider Internal Medicine
DX: G58.8 Other specified mononeuropathies (principal); Z98.1 Arthrodesis status
CPT/HCPCS: 99213

== ENCOUNTER → 2024-05-13 10:31 | Outpatient (BNVA) | payer MEDICARE, MEDICAID, SELFPAY | PROVIDERS: PCP Internal Medicine; Visit Provider Internal Medicine | DX: G58.8 Other specified mononeuropathies (principal); Z98.1 Arthrodesis status | CPT/HCPCS: 99212 ==

== ENCOUNTER 2024-05-20 08:51 | Outpatient (AMB) | payer MEDICARE, MEDICAID, SELFPAY ==
--- NOTE | 2024-05-20 08:56 | MHC.OFFVIS ---
Vital Signs 05/20/24 08:57 Height 6 ft Weight 171 lb BMI 23.2 BP 174/87 H Blood Pressure Location Lt brachial Position Sitting Respiration 16 Pulse 49 L Pulse Source Pulse Oximeter Pulse Oximetry (%) 99 Oxygen Delivery Method Room Air Intake Visit Reasons: 1 Week Follow Up Allergies gabapentin Adverse Reaction (Severe, Verified 05/20/24 09:00) Hallucinations trazodone Adverse Reaction (Severe, Verified 05/20/24 09:00) Nightmare Medication List - Last Reconciled 05/20/24 by Mey Denton LPN amlodipine-benazepril 5-10 mg 1 cap PO DAILY aspirin (Adult Aspirin Regimen) 81 mg PO DAILY diazepam 10 mg PO BID PRN insulin degludec (Tresiba FlexTouch U-100 insulin) 5 units subcut DAILY insulin lispro (Humalog KwikPen (U-100) Insulin) 1 sliding scale dose subcut USEASDIRECTD lisinopril 5 mg PO DAILY qnwlfifl-eeohpucuyYg-pjfdijojC 3.5-500-10,000 qi-vies-wbxh 1 appl topical BID omeprazole 20 mg PO DAILY oxycodone 10 mg PO Q4H PRN simvastatin 10 mg PO BEDTIME HPI HPI 1 Week Follow Up: Details: Orlin is here for follow-up. His wound appears to have healed and scabbed over. There is still a pus anthony on the left side but it appears to be dry to touch and nontender. PFSH Medical History Hyperlipidemia GERD (gastroesophageal reflux disease) Type 1 diabetes mellitus Anxiety HTN (hypertension) Lumbar spondylosis Disorder of sacrum Surgical History History of surgery History of corneal transplant Hx of hand surgery Hx of tonsillectomy History of back surgery Social History Comment: pt states pain is tolerable at that level and feels ready to go Patient Tobacco Use Status: Former Tobacco user Physical Exam Vital Signs: Last Vital Signs Pulse 49 L 05/20/24 08:57 Resp 16 05/20/24 08:57 BP 174/87 H 05/20/24 08:57 Pulse Ox 99 05/20/24 08:57 Oxygen Delivery Method Room Air 05/20/24 08:57 BMI result Body Mass Index 23.2 Assessment & Plan Assessment & Plan (1) Visit for wound check: Code(s): Z51.89 - Encounter for other specified aftercare Category: Medical Plan Appears to be healing well. Recommend continuing bacitracin ointment topically. No further antibiotic needed orally. He will send me a picture 1 week from now. I provided him with my cell phone number. Advised to hold off on varying the stimulation belt until I clear him to do so. Coding Level of Care Code Est Pt Level 2 (09243) Diagnoses Visit for wound check Z51.89
[2024-05-20 08:57] VITALS: BP 174/87; PULSE 49; RESP 16; O2SAT 99; BMI 23.2
== END 2024-05-20 09:22 | disposition home or self-care (01) ==
PROVIDERS: PCP Internal Medicine; Visit Provider Internal Medicine
DX: Z51.89 Encounter for other specified aftercare (principal)
CPT/HCPCS: 99212

== ENCOUNTER → 2024-05-20 08:51 | Outpatient (BNVA) | payer MEDICARE, MEDICAID, SELFPAY | PROVIDERS: PCP Internal Medicine; Visit Provider Internal Medicine | DX: Z48.00 Encounter for change or removal of nonsurgical wound dressing (principal); Z79.2 Long term (current) use of antibiotics | CPT/HCPCS: 99212 ==

== ENCOUNTER 2024-06-01 09:51 | Outpatient (AMB) | payer MEDICARE, MEDICAID, SELFPAY ==
--- NOTE | 2024-06-01 09:52 | A.OFFVIS_ITS ---
Vital Signs 06/01/24 09:55 Height 6 ft Weight 174 lb BMI 23.6 BP 168/68 H Blood Pressure Location Lt brachial Position Sitting Respiration 16 Pulse 65 Pulse Source Pulse Oximeter Pulse Oximetry (%) 96 Oxygen Delivery Method Room Air Intake Visit Reasons: WOUND CHECK Allergies gabapentin Adverse Reaction (Severe, Verified 06/01/24 09:56) Hallucinations trazodone Adverse Reaction (Severe, Verified 06/01/24 09:56) Nightmare Medication List - Last Reconciled 06/01/24 by Mey Denton LPN amlodipine-benazepril 5-10 mg 1 cap PO DAILY aspirin (Adult Aspirin Regimen) 81 mg PO DAILY diazepam 10 mg PO BID PRN insulin degludec (Tresiba FlexTouch U-100 insulin) 5 units subcut DAILY insulin lispro (Humalog KwikPen (U-100) Insulin) 1 sliding scale dose subcut USEASDIRECTD lisinopril 5 mg PO DAILY gkyxtuqe-ifladjyfcAy-gpegnlboC 3.5-500-10,000 gv-kgjg-wuxd 1 appl topical BID omeprazole 20 mg PO DAILY oxycodone 10 mg PO Q4H PRN simvastatin 10 mg PO BEDTIME HPI HPI WOUND CHECK: Details: History of Present Illness The patient is a 49-year-old male presenting with a wound check following bilateral glenohumeral nerve stimulator implants. The procedure was performed on the , approximately two months prior to this visit. Initially, the wound at the left lead insertion site has been painful, but now primarily causes itching. The patient reports that the pain occurs mostly when going to bed and upon waking. He was advised to refrain from activating the nerve stimulator and thus has not used it since implantation. Adjacent to the surgical site, there is a yellow tissue, clinically observed as granulation tissue, which has been present for a notable duration but is identified as non-infectious. The patient's neighbor, a nurse, confirmed observations of the healing site. Healing is slower than expected, but there is no active infection noted. The wound has been previously dressed, and no major complications have been reported apart from some burning sensation and tissue discoloration. The patient has resumed limited physical therapy sessions and awaits further guidelines on usage of the device. Pain Description - Onset and Timing: Mostly when going to bed and upon waking. - Quality and Character: Described as burning at times and primarily itching. - Primary Location: Left lead insertion site. - Exacerbating Factors: Some discomfort on contact. - Relieving Factors: Pain medication taken in the morning. - Activities Affected: Difficulty when preparing for sleep and upon waking in the morning. Physical Exam - Musculoskeletal- Presence of yellow granulation tissue at the left lead insertion site; tissue adherent to the wound base. Results Pain Management - Affect: Mood and psychological well-being not specifically mentioned, no aberrant behaviors noted. - Analgesia: Pain medication taken at 7 a.m.; provides sufficient relief. - Adverse Effects: None reported. - Activities of Daily Living: Limited interference, primarily discomfort during sleep transitions. - Aberrant Drug Related Behaviors: None indicated. [facility] Medical History Hyperlipidemia GERD (gastroesophageal reflux disease) Type 1 diabetes mellitus Anxiety HTN (hypertension) Lumbar spondylosis Disorder of sacrum Surgical History History of surgery History of corneal transplant Hx of hand surgery Hx of tonsillectomy History of back surgery Social History Comment: pt states pain is tolerable at that level and feels ready to go Patient Tobacco Use Status: Former Tobacco user Physical Exam Vital Signs: Last Vital Signs Pulse 65 06/01/24 09:55 Resp 16 06/01/24 09:55 BP 168/68 H 06/01/24 09:55 Pulse Ox 96 06/01/24 09:55 Oxygen Delivery Method Room Air 06/01/24 09:55 BMI result Body Mass Index 23.6 Assessment & Plan Assessment & Plan (1) Visit for wound check: Code(s): Z51.89 - Encounter for other specified aftercare Category: Medical Plan Plan - Allow more time for natural healing of the wound. - Continue current wound dressing regimen with Bacitracin and Tegaderm on a temporary basis. - Resume showering and daily activities, monitoring the site closely. - Commence nerve stimulation therapy usage over the coming days as comfort permits. - Conduct remote monitoring with weekly submission of wound pictures. - Possible revision in the operating room if there is any symptom exacerbation or discharge noted. Patient was informed and verbally consented to the use of an ambient scribe for clinic note documentation during this visit. Discussion Notes I discussed with the patient that the yellow tissue observed is granulation tissue, which, despite being slow to resolve, is not indicative of an infection. Approaches to minimize surgical site irritation and encourage healing, like dressing practices, were emphasized. I advised the patient not to worry about the tissue adhered at the site, as it is typically resolved over time. I reassured him on the safety of resuming showering and daily activities. We reviewed the usage plan for the nerve stimulation device, restricting activation until the weekend. I informed him to monitor the healing, sending photographic evidence weekly as a precaution. Instructions were given to notify us if the tissue starts oozing or if other symptoms arise. Future surgical intervention was outlined as a contingency plan should current healing not progress satisfactorily. Patient Instructions - Wait until the weekend to resume nerve stimulator use. - Apply wound dressing with Bacitracin and Tegaderm for the next few days. - Return to showering and resume normal activities as tolerated. - Monitor the wound for changes or discharge. - Send weekly pictures of the wound to our office. - Alert us if significant changes in the wound including discharge or additional symptoms develop. Coding Level of Care Code Est Pt Level 3 (39286) Diagnoses Visit for wound check Z51.89
[2024-06-01 09:55] VITALS: BP 168/68; PULSE 65; RESP 16; O2SAT 96; BMI 23.6
--- OUTSIDE RECORDS SUMMARY | 2024-06-01 10:44 | XMS_ITS | Clinical Summary ---
Author Organization [facility] Address [phone] [place] [address] Care Team Providers Care New Business Clerk Name Role Phone Demarcus Martin MD Primary Care Provider [phone] Allergies Active Allergy Reactions Criticality Noted Date Comments Gabapentin Mental Status Change 12/08/2017 Other reaction(s): Hallucinations Trazodone Medium 08/14/2021 Other reaction(s): nightmares nightmares Medications Medication Sig Dispensed Refills Start Date End Date Status amLODIPine (NORVASC) 5 MG tablet Take 5 mg by mouth daily. Active aspirin 81 MG EC tablet Take 81 mg by mouth daily. Active omeprazole (PRILOSEC) 20 MG capsule Take 20 mg by mouth daily. Active insulin degludec U-200 (TRESIBA FLEXTOUCH) 200 unit/mL (3 mL) InPn injection pen 20 Units 2 (two) times a day. Active lisinopril (PRINIVIL,ZESTRI L) 5 MG tablet Take 5 mg by mouth daily. Active simvastatin (ZOCOR) 10 MG tablet Take 10 mg by mouth nightly. Active insulin aspart U-100 (NOVOLOG) 100 unit/mL (3 mL) injection pen Inject 6-10 Units under the skin 4 (four) times a day with meals and nightly. Active FREESTYLE 28 gauge lancets 6 times daily 05/06/2019 Active BD INSULIN PEN NEEDLE UF SHORT 31 gauge x /16 Ndle 06/24/2019 Active blood sugar diagnostic Strp strips 6 each by Miscellaneous route as needed. Active diazePAM (VALIUM) 10 MG tabletIndication s:Lumbar spondylosis Take 1 tablet (10 mg total) by mouth every 12 (twelve) hours as needed. 56 tablet 05/09/2024 5 Active oxyCODONE HCl 10 mg TabIndications:D isorder of sacrum Take 1 tablet (10 mg total) by moth 5-6 times a day. Partial fill ok 150 tablet 05/25/2024 Active oxyCODONE HCl 10 mg TabIndications:D isorder of sacrum Take 1 tablet (10 mg total) by moth 5-6 times a day. Partial fill ok 150 tablet 04/27/2024 Discontinue d(Reorder) Active Problems Problem Noted Date Diagnosed Date Disorder of sacrum 01/03/2022 Myalgia 09/14/2018 Hypertension 04/27/2018 Sacroiliitis, not elsewhere classified 8 Myofascial pain 10/13/2017 Lumbar spondylosis 03/19/2017 Lumbosacral spondylosis without myelopathy 03/19 Lumbosacral spondylosis without myelopathy 03/19 Encounters Date Type Department Care Team Description 05/05/2024 Refill [facility] [address] [place] [address] [place] [id number] Stephanie Colin MA Medication Refill (May Oxycodone refill ) 04/26/2024 Telephone [facility] [address] [place] [address] [place] [address] Pardeep Snell MD Rx written for wrong date (Rx needs changed to TODAY) 04/21/2024 Telephone [facility] [address] [place] [address] [place] [address] Pardeep Snell MD Back Pain 04/05/2024 Refill [facility] [address] [place] [address] [place] [address] Stephanie Colin MA Medication Refill 04/04/2024 12:00 PM EST Telemedicine - audio only [facility] [address] [place] [address] [place] [address] Pardeep Snell MD Disorder of sacrum (Primary Dx) 03/31/2024 Telephone [facility] [address] [place] [address] [place] [address] Demarcus Martin MD update 03/11/2024 Refill [facility] [address] [place] [address] [place] [address] Pardeep Snell MD Medication Refill 03/09/2024 Refill [facility] [address] [place] [address] Demarcus Martin MD Medication Refill 03/04/2024 8:20 AM EDT Telemedicine - audio only [facility] [address] [place] [address] Pardeep Snell MD Lumbar spondylosis from Last 3 Months Immunizations Name Administration Dates Next Due COVID-19 (Pre-03/02) Moderna Vaccine, mRNA, PF 10/11/2020,09/13/2020 Influenza Quadrivalent Prese rvative Free IM 01/09/2020,03/19/2018,12/10/2016,2015,12/21/2014 Family History Medical History Relation Comments CV disease Father 2 Relation Status Comments Father 1 Father 2 Social History Tobacco Use Types Packs/Day Years Used Date Smoking Tobacco: Former Cigarettes Q uit: 1994 Smokeless Tobacco: Never Alcohol Use Standard Drinks/Week Comments Not Currently 0 (1 standard drink = 0.6 oz pur e alcohol) sober 2 years Education Answer Date Recorded Are you interested in more education? Not on radha e 09/05/2022 Are you concerned about learning? Not on file 09/05/2022 No 09/05/2022 No 09/05/2022 Digital Access Answer Date Recorded No 10/01/2022 No 10/01/2022 No 10/01/2022 Reliable internet access at home? Not on file 10/01/2022 Device with a working camera? Not on file Sex and Gender Information Value Date Recorded Sex Assigned at Not on file Gender Identity Not on file Sexual Orientation Not on file Last Filed Vital Signs Vital Sign Reading Time Taken Comments Blood Pressure 158/68 12/03/2022 8:42 AM EDT Pulse 58 12/03/2022 8:42 AM EDT Temperature 36.7 ??C (98 ??F) 12/03/2022 8:42 AM EDT Respiratory Rate 18 08/14/2021 8:40 AM EDT Oxygen Saturation 95% 12/03/2022 8:42 AM EDT Inhaled Oxygen Concentration - - Weight 77.6 kg (171 lb) 09/12/2022 8:00 AM EDT Height 182.9 cm (6') 09/12/2022 8:00 AM EDT Body Mass Index 23.19 09/12/2022 8:00 AM EDT Plan of Treatment Health Maintenance Due Date Last Done Comments CREATININE LEVEL 1973 LIPID PANEL 1973 POTASSIUM LEVEL 1973 DEPRESSION SCREENING 1985 SMOKING Hx and SMOKELESS TOBACCO SCREENING 1986 HEPATITIS B SCREENING 1991 HEPATITIS C SCREENING 1991 HIV ONE-TIME SCREENING (18-65 YEARS) 1991 HEPATITIS B VACCINES (1 of 3 - 19+ 3-dose series) 1992 COLOGUARD 2018 COLONOSCOPY 2018 COLORECTAL CANCER SCREENING 2018 FIT TEST 2018 FOBT 2018 SIGMOIDOSCOPY 2018 VIRTUAL COLONOSCOPY 2018 Adult Td,Tdap Booster 10/16/2018 10/16/2008 PNEUMOCOCCAL VACCINES (50+ years) (2 of 2 - PCV) 2023 12/10/2010, 05/13/2007 ZOSTER VACCINES (1 of 2) 2023 BLOOD PRESSURE 06/05/2023 12/03/2022 INFLUENZA VACCINE (#1) 2023 2, 01/09/2020, 03/30/2019, Additional history exists COVID-19 VACCINE (2023- season) 2024 10/11/2020, 09/13/2020 HEPATITIS A VACCINES Aged Out No long er eligible based on patient's age to complete this topic HIB VACCINES Aged Out No longer eligi ble based on patient's age to complete this topic MENINGOCOCCAL VACCINES (ACWY) Aged Out No longer eligible based on patient's age to complete this topic Medical Devices Not on file Care Teams New Business Clerk Relationship Specialty Start Date End Date Demarcus Mratin MD [address] [place] [address] DEYA CUENCA PCP - General 02/26/17 Additional Source Comments The information contained in this document represents components of the legal health record. It is not the complete legal health record.[facility]
--- OUTSIDE RECORDS SUMMARY | 2024-06-01 10:44 | XMS_ITS | Encounter Summary ---
Author Organization [facility] Address [phone] [place] [address] Care Team Providers Care Shook Machine Operator Name Role Phone Demarcus Martin MD Primary Care Provider [phone] Encounter Details Date Type Department Care Team (Late st Contact Info) Description 11/21/2021 Procedure Pass [facility], [address] [address] Social History Tobacco Use Types Packs/Day Years Used Date Smoking Tobacco: Former Cigarettes Q uit: 1994 Smokeless Tobacco: Never Alcohol Use Standard Drinks/Week Comments Not Currently 0 (1 standard drink = 0.6 oz pur e alcohol) sober 2 years Sex and Gender Information Value Date Recorded Sex Assigned at Not on file Gender Identity Not on file Sexual Orientation Not on file documented as of this encounter Plan of Treatment Not on file documented as of this encounter Visit Diagnoses Not on filedocumented in this encounter Care Teams Shook Machine Operator Relationship Specialty Start Date End Date Demarcus Martin MD [address] [place] [id number] PCP - General 02/26/17 documented as of this encounter Additional Source Comments The information contained in this document represents components of the legal health record. It is not the complete legal health record.[facility]
--- OUTSIDE RECORDS SUMMARY | 2024-06-01 10:44 | XMS_ITS | Encounter Summary ---
Author Organization [facility] Address [phone] [place] [address] Care Team Providers Care Inspector Pawnshop Detail Name Role Phone Demarcus Martin MD Primary Care Provider [phone] Reason for Visit * Reason Onset Date Comments Medication Refill 05/05/2024May Oxycod one refill Encounter Details Date Type Department Care Team ([facility] st Contact Info) Description 05/05/2024 Refill [facility] Neurology [address] [place], [place] [phone] Stephanie Colin MA [address] [place] [address] [email or web address] Medication Refill (May Oxycodone refill ) Social History Tobacco Use Types Packs/Day Years [...] on file documented as of this encounter Progress Notes * Stephanie Colin MA - 05/05/2024 2:22 PM EST Images from the original note were not included. Oxycodone Refill will be due 05/25/2024 Rx Care Gap Status - Instructions for Clinical Staff (prescriber discretion applies): > No future appt: Please schedule if appropriate. > Please check [place] for all controlled substances requested. Controlled Medication Refill Last filled on: 04/27/2024 Oxycodone 10 mg #150 for 28 days Date of last urine toxicology screen: N/A Controlled Substance Agreement completed on: 12/03/2022 Visit Info Last visit: 04/04/2024 Pardeep Snell MD - Spine Surgery [facility] > Requested f/u: Not specified Upcoming visit: None ACTIONS TAKEN BY Stephanie Colin MA - Refill protocol passed: no action needed. Opioid Rx Protocol PRESCRIBER ATTENTION REQUIRED - Please evaluate- oxycodone HCl Controlled substance renewals are at prescriber discretion. Pain management profile/toxicology testing (urine/saliva) may be considered annually or more frequently if clinically indicated. In-person visit in the past 2 years: No (Last in-person visit: None) Visit in the past 4 months: No Benzodiazepine on medication list Opioid agreement on file: No Pain management profile/toxicology testing in past 12 months: No documented in this encounter Plan of Treatment Not on file documented as of this encounter Visit Diagnoses Diagnosis Disorder of sacrum Disorders of sacrum documented in this encounter Care Teams Inspector Pawnshop Detail Relationship Specialty Start Date End Date Demarcus Martin MD [address] [place] [id number] PCP - General 02/26/17 documented as of this encounter Additional Source Comments The information contained in this document represents components of the legal health record. It is not the complete legal health record.[facility]
--- OUTSIDE RECORDS SUMMARY | 2024-06-01 10:44 | XMS_ITS | Clinical Summary ---
Author Organization [facility] Address [address] [place] [address] Care Team Providers Care Boiler Fireman Name Role Phone Demarcus Martin MD Primary Care Provider [phone] Social History Tobacco Use Types Packs/Day Years Used Date Smoking Tobacco: Never Assessed Sex and Gender Information Value Date Recorded Sex Assigned at Not on file Gender Identity Not on file Sexual Orientation Not on file Plan of Treatment Health Maintenance Due Date Last Done Comments Hepatitis B Vaccines (1 of 3 - 3-dose series) 1973 Hepatitis C Screening 1973 Depression Screening 1985 Preventative Health Evaluation 1991 DTap / Tdap / Td (1 - Tdap) 1992 Colon Cancer Screening (Colonoscopy) 2018 Shingrix-Zoster Vaccine (1 of 2) 2023 COVID-19 Vaccine ( season) 2024 10/11/2020, 09/13/2020 Influenza Vaccine (#1) 2024 0, 03/19/2018, 12/10/2016, Additional history exists Pneumococcal Vaccine Aged Out No long er eligible based on patient's age to complete this topic RSV Ped < 20 months Aged Out No longe r eligible based on patient's age to complete this topic Care Teams Boiler Fireman Relationship Specialty Start Date End Date Demarcus Martin MD [address] [id number] [place] [phone] PCP - General Internal Medicine 10/03/20
--- OUTSIDE RECORDS SUMMARY | 2024-06-01 10:44 | XMS_ITS | Encounter Summary ---
Author Organization [facility] Address [phone] [facility] [email or web address] [address] Care Team Providers Care Service Advisor Name Role Phone Demarcus Martin MD Primary Care Provider Reason for Visit * Reason Onset Date Comments update 03/31/2024 Encounter Details Date Type Department Care Team (Late st Contact Info) Description 03/31/2024 Telephone [facility] Spine Medicine [address] [place] [address] Demarcus Martin MD [address] [phone] update Social History Tobacco Use Types Packs/Day Years [...] as of this encounter Progress Notes * Pardeep Snell MD - 04/02/2024 11:17 AM EST Noted thank you * Charissa Deshpande - 03/31/2024 1:52 PM EST Pt called in stating he had his trial implant put in. Pt stated the received an authorization from his insurance for the peripheral operation. Pt stated he has been waiting months for the approval onthis operation in [place] with Dr. Ross. Please contact and advise. Central Support Sales Order Clerk (Please do not reply to this user; this inbox is not monitored.) Thank you. documented in this encounter Plan of Treatment Not on file documented as of this encounter Visit Diagnoses Not on filedocumented in this encounter Care Teams Service Advisor Relationship Specialty Start Date End Date Demarcus Martin MD [address] [place] [id number] PCP - General 02/26/17 documented as of this encounter Additional Source Comments The information contained in this document represents components of the legal health record. It is not the complete legal health record.[facility]
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
--- OUTSIDE RECORDS SUMMARY | 2024-06-01 10:44 | XMS_ITS | Encounter Summary ---
Author Organization [facility] Address [phone] [place] [address] Care Team Providers Care Switch Crew Supervisor Name Role Phone Demarcus Martin MD Primary Care Provider [phone] Reason for Visit * Reason Onset Date Comments Provider Update 02/11/2024 Encounter Details Date Type Department Care Team ([facility] st Contact Info) Description 02/11/2024 Telephone [facility] [address] [place] [phone] Pardeep Snell MD [address] [facility], [address]nd [place] [address] [email or web address] Provider Update Social History Tobacco Use Types Packs/Day Years [...] Progress Notes * Pardeep Snell MD - 02/11/2024 12:55 PM EDT I do not understand. He is already an established patient there. He has seen Dr. Rico a number of times, had a trial stimulator, he is just waiting for an appointment to put in the permanent stimulator. Once someone is an established patient of the practice he should not require a new referral, right? is his office requesting? I will go ahead and do it but it does not make any sense to me... * Stephanie Colin MA - 02/11/2024 11:56 AM EDT The last referral to was placed on 12/03/22. Patient will need a new referral. * Kenji Parker - 02/11/2024 11:14 AM EDT Pt called to tell Dr. Snell that Dr. Juan Miguel Rico's office has not called the pt about scheduling a surgery, and the pt stated that Dr. Snell told the pt to let him no if they had not done so yet. Ptstated that he called that office on 02/03. Please contact and advise. Central Support Medical Clerk (Please do not reply to this user; this inbox is not monitored.) Thank you. documented in this encounter Plan of Treatment Not on file documented as of this encounter Visit Diagnoses Not on filedocumented in this encounter Care Teams Switch Crew Supervisor Relationship Specialty Start Date End Date Demarcus Martin MD [address] [place] [address] [address] [place] [address] PCP - General 02/26/17 documented as of this encounter Additional Source Comments The information contained in this document represents components of the legal health record. It is not the complete legal health record.[facility]
== END 2024-06-01 10:32 | disposition home or self-care (01) ==
PROVIDERS: PCP Internal Medicine; Visit Provider Internal Medicine
DX: G58.8 Other specified mononeuropathies (principal); M96.1 Postlaminectomy syndrome, not elsewhere classified; Z51.89 Encounter for other specified aftercare
CPT/HCPCS: 99213

== ENCOUNTER → 2024-06-01 09:51 | Outpatient (BNVA) | payer MEDICARE, MEDICAID, SELFPAY | PROVIDERS: PCP Internal Medicine; Visit Provider Internal Medicine | DX: Z48.811 Encounter for surgical aftercare following surgery on the nervous system (principal); Z96.82 Presence of neurostimulator | CPT/HCPCS: 99212 ==